=== PATIENT | female | born 1990 ===

== ENCOUNTER 2024-07-12 07:05 | Outpatient (CLI) | payer OTHER ==
[~2024-07-12] VITALS: Ht 167.6 cm; Wt 144.7 kg
[2024-07-12] MEDS ORDERED: PRENTAB9 PO (07:11)
[2024-07-12] MEDS ORDERED: HOME MED LIST COMPLETE! XX SCH (07:20)
[2024-07-12 07:22] VITALS: BP 119/57
[2024-07-12] MEDS ORDERED: VENL150C43 PO (08:32)
[2024-07-12] MEDS ORDERED: BUSP15TA47 PO (08:32)
[2024-07-12 10:13] VITALS: BP 122/62
[2024-07-12 10:37] LABS: Trichomonas vaginalis (AMP) NOT DETECTED (NEGATIVE)
[2024-07-12 11:01] LABS: GC DNA AMPLIFICATION NEGATIVE (NEGATIVE)
== END 2024-07-12 17:53 | disposition home or self-care (01) ==
LOC: M LDO 07:05
PROVIDERS: ATTEND Advanced Practice Midwife
DX: O26.853 Spotting complicating pregnancy, third trimester (principal); O44.42 Low lying placenta NOS or without hemorrhage, second trimester; O24.419 Gestational diabetes mellitus in pregnancy, unspecified control; O99.342 Other mental disorders complicating pregnancy, second trimester; O99.212 Obesity complicating pregnancy, second trimester; F41.9 Anxiety disorder, unspecified; E66.9 Obesity, unspecified; Z3A.25 25 weeks gestation of pregnancy

== ENCOUNTER 2024-07-17 14:15 | Outpatient (CLI) | payer OTHER ==
[~2024-07-17] VITALS: Ht 167.6 cm; Wt 147.8 kg
[~2024-07-17 14:15] MED LIST: BUSP15TA47 PO; PRENTAB9 PO; VENL150C43 PO
[2024-07-17 14:49] VITALS: BP 132/84
[2024-07-17 15:26] LABS: BASO % 0.3 % (0.0-1.0); EOS # 0.1 10^3/uL (0.0-0.5); EOS % 0.8 % (0.0-3.0); HEMOGLOBIN 13.8 g/dl (12.0-15.5); LYMPH # 2.1 10^3/uL (1.5-5.0); LYMPH % 16.5 % (24.0-44.0); MEAN CORPUSCULAR HEMOGLOBIN 30.8 pg (27.0-33.0); MEAN CORPUSCULAR HGB CONC 35.4 g/dl (32.0-36.5); MEAN CORPUSCULAR VOLUME 87.1 fl (80.0-96.0); MONO # 0.7 10^3/uL (0.0-0.8); MONO % 5.4 % (2.0-8.0); NEUTROPHILS # 9.5 10^3/uL (1.5-8.5); NEUTROPHILS % 76.3 % (36.0-66.0); PLATELET COUNT, AUTOMATED 209 10^3/uL (150-450); RED BLOOD COUNT 4.48 10^6/uL (4.00-5.40); WHITE BLOOD COUNT 12.5 10^3/uL (4.0-10.0)
[2024-07-17 15:38] LABS: INR 1.09; PROTHROMBIN TIME 13.8 SECONDS (12.5-14.5)
[2024-07-17 17:19] VITALS: BP 127/78
[2024-07-17] MEDS: BETAMETHASONE SOLUSPAN 6MG/ML 5ML VIAL IM SCH (18:09)
[2024-07-17 18:40] VITALS: BP 129/67
[2024-07-17 20:24] VITALS: BP 119/61
[2024-07-17 21:46] VITALS: BP 129/78
[2024-07-18] MEDS ORDERED: VENLAFAXINE **XR** 75MG CAPSULE PO SCH (09:00)
[2024-07-18] MEDS ORDERED: PRENATAL VITAMINS CHEWABLE TABLET PO SCH (09:00)
== END 2024-07-17 21:58 | disposition other institution (70) ==
LOC: M LDO 14:15
PROVIDERS: ATTEND Advanced Practice Midwife
DX: O46.8X2 Other antepartum hemorrhage, second trimester (principal); O24.112 Pre-existing type 2 diabetes mellitus, in pregnancy, second trimester; O99.212 Obesity complicating pregnancy, second trimester; O99.342 Other mental disorders complicating pregnancy, second trimester; O99.332 Smoking (tobacco) complicating pregnancy, second trimester; E66.9 Obesity, unspecified; F32.9 Major depressive disorder, single episode, unspecified; F17.210 Nicotine dependence, cigarettes, uncomplicated; Z3A.26 26 weeks gestation of pregnancy
CPT/HCPCS: 36415; 59025; 76815; 85025; 85384; 85610; 86850; 86900; 86901; 96372; G0463; J0702